=== PATIENT | female | born 1985 | race Caucasian/White ===

== ENCOUNTER 2020-01-27 08:24 | Day surgery (SDC) | payer OTHER ==
[~2020-01-27] VITALS: Ht 175.3 cm; Wt 142.8 kg
--- NOTE | 2020-01-27 12:23 | NUR ---
01/27/20 1223 Eliza Pratt PTS IS AT CHAIRSIDE, AFTER EMESIS UPON ARRIVAL TO SDU NAUSEA HAS NOW RESOLVED, PT IS EATTING HER SECOND POPCILCE AND CRACKERS. SHE STATES 3/10 PAIN AT SURGICAL SITE. NO PAIN MEDS REQUIRED WHEN ASSESSED AT 1210, I WILL CONTINUE TO ASSESS. VSS.
== END 2020-01-27 13:10 | disposition home or self-care (01) ==
LOC: ORSCSDS 08:24
PROVIDERS: Podiatrist Foot & Ankle Surgery
PROC: 0SBF4ZZ Excision of Right Ankle Joint, Percutaneous Endoscopic Approach (ICD-10-PCS; principal; 2020-01-27 09:45)
PROC: 0SGF04Z Fusion of Right Ankle Joint with Internal Fixation Device, Open Approach (ICD-10-PCS; principal; 2020-01-27 09:45)
PROC: 0LQV0ZZ Repair Right Foot Tendon, Open Approach (ICD-10-PCS; principal; 2020-01-27 09:45)
DX: S93.491A Sprain of other ligament of right ankle, initial encounter (principal); M25.371 Other instability, right ankle; M76.821 Posterior tibial tendinitis, right leg; M65.871 Other synovitis and tenosynovitis, right ankle and foot; F17.210 Nicotine dependence, cigarettes, uncomplicated; E03.9 Hypothyroidism, unspecified; E66.01 Morbid (severe) obesity due to excess calories; Z68.42 Body mass index [BMI] 45.0-49.9, adult
CPT/HCPCS: C1713; J0171; J0690; J1100; J1885; J2250; J2405; J2704; J2765; J3010; J7120